=== PATIENT | male | born 1980 | race American Indian/Alaskan Native ===

== ENCOUNTER 2022-03-13 06:37 | Inpatient (IN) | payer MEDICAID ==
--- NOTE | 2022-03-13 07:42 | Emergency Department Report ---
ED Shortness of Breath HPI - General Chief Complaint: Dyspnea/Respdistress Stated Complaint: FLU LIKE SYMPTOMS Time Seen by Provider: 03/13/22 07:40 Source: patient, EMS Mode of arrival: Stretcher Limitations: No Limitations - History of Present Illness Initial Comments: Patient is a 42-year-old male with history of chronic kidney disease on dialysis Monday presenting to ED with complaint of shortness of breath, chills and coughing up mucus this morning. States he missed his last dialysis session on Monday. He denies any fever. - Related Data Allergies Allergy/AdvReac Type Severity Reaction Status Date / Time morphine Allergy Itching Verified 03/13/22 07:01 ED Review of Systems ROS: Stated complaint: FLU LIKE SYMPTOMS Other details as noted in HPI Constitutional: chills. denies: fever Respiratory: cough, shortness of breath Cardiovascular: denies: chest pain, palpitations Gastrointestinal: denies: abdominal pain, nausea, diarrhea Musculoskeletal: denies: back pain, joint swelling, arthralgia Skin: denies: rash, lesions Neurological: denies: headache, weakness, paresthesias Psychiatric: denies: anxiety, depression ED Past Medical Hx - Past Medical History Previous Medical History?: Yes Hx Hypertension: Yes Hx Renal Disease: Yes (On dialysis) - Surgical History Past Surgical History?: Yes Additional Surgical History: Left AV fistula - Social History Smoking Status: Current Every Day Smoker Substance Use Type: None ED Physical Exam - General Limitations: No Limitations General appearance: alert, in no apparent distress - Head Head exam: Present: atraumatic, normocephalic - Respiratory Respiratory exam: Present: normal lung sounds bilaterally. Absent: respiratory distress - Cardiovascular Cardiovascular Exam: Present: regular rate, normal rhythm, normal heart sounds - GI/Abdominal GI/Abdominal exam: Present: soft. Absent: distended, tenderness - Rectal Rectal exam: Present: deferred - Neurological Exam Neurological exam: Present: alert, oriented X3 - Psychiatric Psychiatric exam: Present: normal affect, normal mood - Skin Skin exam: Present: warm, dry, intact, normal color ED Course Vital Signs 03/13/22 03/13/22 03/13/22 06:37 07:30 07:32 Temperature 98.4 F Pulse Rate 76 Respiratory 18 Rate Blood Pressure 172/108 191/122 O2 Sat by Pulse 100 95 95 Oximetry 0903/13/22 03/13/22 08:00 08:30 09:43 Temperature Pulse Rate Respiratory Rate Blood Pressure 166/110 166/110 170/119 O2 Sat by Pulse 96 95 Oximetry 03/13/22 03/13/22 10:00 10:16 Temperature 97.4 F L Pulse Rate Respiratory Rate Blood Pressure 170/119 O2 Sat by Pulse 91 Oximetry ED Medical Decision Making - Lab Data Result diagrams: 03/13/22 09:35 03/13/22 09:35 - Medical Decision Making Chest x-ray reveals mild pulmonary edema. Potassium 6.6. Patient given oral Kayexalate and IV calcium gluconate. Nephrology consulted for dialysis. Will admit to hospitalist. Critical care attestation.: If time is entered above; I have spent that time in minutes in the direct care of this critically ill patient, excluding procedure time. ED Disposition Clinical Impression: Volume overload, Hyperkalemia, Pulmonary edema, ESRD needing dialysis Disposition: ADMITTED INPATIENT Is pt being admited?: Yes Condition: Stable Instructions: Pulmonary Edema (ED)
--- NOTE | 2022-03-13 08:07 | XRay Report ---
CHEST 1 VIEW 03/13/2022 7:00 AM INDICATION / CLINICAL INFORMATION: Dyspnea. COMPARISON: None available. FINDINGS: SUPPORT DEVICES: None. HEART / MEDIASTINUM: The cardiac silhouette is at the upper limits normal for size. There is mild megan tral pulmonary vascular prominence. LUNGS / PLEURA: Mild diffuse interstitial prominence. No pneumothorax. ADDITIONAL FINDINGS: No significant additional findings. IMPRESSION: 1. Mild pulmonary edema. Signer Name: Poncho Dos Santos MD Signed: 03/13/2022 8:03 AM Workstation Name: [email or web address]
[2022-03-13 10:39] LABS: Basophils # (Auto) 0.1 K/mm3 (0.0-0.1); Basophils % (Auto) 1.2 % (0.0-1.8); Eosinophils # (Auto) 0.2 K/mm3 (0.0-0.4); Eosinophils % (Auto) 2.1 % (0.0-4.3); Hematocrit 31.2 % (35.5-45.6); Hemoglobin 10.3 gm/dl (11.8-15.2); Lymphocytes # (Auto) 1.8 K/mm3 (1.2-5.4); Lymphocytes % (Auto) 22.4 % (13.4-35.0); Mean Corpuscular HGB Conc 33 % (32-34); Mean Corpuscular Volume 95 fl (84-94); Monocytes # (Auto) 0.5 K/mm3 (0.0-0.8); Monocytes % (Auto) 6.1 % (0.0-7.3); Platelet Count 325 K/mm3 (140-440); Red Cell Distribution Width 15.6 % (13.2-15.2)
[2022-03-13 10:50] LABS: Albumin 4.3 g/dL (3.9-5); Calcium 6.4 mg/dL (8.4-10.2)
[2022-03-13] MEDS ORDERED: CALCIUM GLUCONATE 1,000 MG in SODIUM CHLORIDE 0.9% 100 ML IV ONE (11:32)
[2022-03-13] MEDS ORDERED: SODIUM POLYSTYRENE 15 GM/60 ML ORAL LIQD PO ONE (11:33)
[2022-03-13] MEDS ORDERED: SODIUM CHLORIDE 0.9% 100 ML IV PRN ×2 (13:24→21:32)
--- NOTE | 2022-03-13 13:24 | Consultation ---
History of Present Illness - Reason for Consult Consult date: 03/13/22 end stage renal disease Requesting physician: YAZMIN PIMENTEL - History of Present Illness 42-year-old male who is not known to me with history of end-stage renal disease for 7 years on hemodialysis on a Monday, Monday and Monday schedule at [facility]. Patient missed his dialysis on Monday has lost track of time. He woke up at 7 PM and his chair time at 3 PM. He was doing well until last night when he developed shortness of breath which has kept worsening. He admits nonproductive cough. He also had chest pain on deep breathing. No fever or chills. Shortness of breath Worsened and so he came to the hospital for further management. In the emergency room, blood pressure was as high as 191/122 mmHg. Potassium is high at 6.6 mmol/L and bicarbonate low at 18 mmol/L. I am consulted to assist with managing renal failure, provide dialysis and manage fluid and electrolyte abnormalities. Past History Past Medical History: anemia, ESRD, hypertension Past Surgical History: Other (AV fistula placement) Social history: smoking (Half a pack per day of tobacco), other (Smokes [employer]. Lives with his .). denies: alcohol abuse, prescription drug abuse Family history: CAD (Mother of heart disease), cancer (Father of cancer) Medications and Allergies Allergies Allergy/AdvReac Type Severity Reaction Status Date / Time morphine Allergy Itching Verified 03/13/22 07:01 Review of Systems All systems: negative (As noted in history of present illness) Exam - Vital Signs Vital signs: Vital Signs Temp Pulse Resp BP Pulse Ox 98.4 F 76 18 172/108 100 03/13/22 06:37 03/13/22 06:37 03/13/22 06:37 03/13/22 06:37 03/13/22 06:37 - Physical Exam Narrative exam: Middle-aged -Bh[place] male lying in bed in no acute distress HEENT: NCAT, pink oral mucous membrane Neck: Supple, no venous distention CVS: S1S2 RRR with no murmur, rub or gallop Chest: Bilateral rhonchi Abdomen: Protuberant, soft, nontender, no organomegaly, bowel sounds are present Extremities: No edema, left upper extremity forearm AV fistula Genitourinary deferred Skin warm and dry Neuro: Awake, alert no focal deficits Results - Lab Results 03/13/22 09:35 03/13/22 09:35 Most recent lab results Calcium 6.4 mg/dL (8.4-10.2) L 03/13/22 09:35 Assessment and Plan - Patient Problems (1) Hyperkalemia Current Visit: Yes Status: Acute Plan to address problem: Secondary to missed dialysis. Patient treated medically. Will dialyze emergently. Put in orders and I spoke with charge nurse in the to contacts dialysis nurse for stat dialysis (2) Pulmonary edema Current Visit: Yes Status: Acute Plan to address problem: Fluid overload secondary to missed dialysis with pulmonary edema. Continue oxygen and we will dialyze today for fluid removal and solute clearance. (3) Accelerated hypertension Current Visit: Yes Status: Acute Plan to address problem: Probably volume related. Give oral antihypertensive medications and dialyze (4) Metabolic acidosis Current Visit: Yes Status: Acute Plan to address problem: Uremic acidosis secondary to missed dialysis. Correct with hemodialysis (5) Anemia in end-stage renal disease Current Visit: Yes Status: Acute Plan to address problem: Given erythropoietin on dialysis once blood pressures controlled (6) ESRD needing dialysis Current Visit: Yes Status: Acute Plan to address problem: Hemodialysis today and again tomorrow. Reinforced importance of adhering to dialysis regimen. Encouraged him to use an alarm on his phone to remind him of his dialysis time.
[2022-03-13] MEDS ORDERED: oxyCODONE /ACETAMINOPHEN 5-325MG TAB PO PRN (16:12)
[2022-03-13] MEDS ORDERED: MORPHINE 2 MG/1 ML INJ IV PRN (16:12)
[2022-03-13] MEDS ORDERED: ONDANSETRON 4 MG/2 ML INJ IV PRN (16:12)
[2022-03-13] MEDS ORDERED: ACETAMINOPHEN 325 MG TAB PO PRN (16:12)
--- NOTE | 2022-03-13 16:16 | History and Physical Report ---
History of Present Illness Date of examination: 03/13/22 Date of admission: 03/13/2022 Chief complaint: Increasing shortness of breath for 1 days History of present illness: Patient is a 42-year-old male with history of chronic kidney disease on dialysis Monday presenting to ED with complaint of shortness of breath, chills and coughing up mucus this morning. States he missed his last dialysis session on Monday. He denies any fever. - Past Medical History --Previous Medical History?: Yes --Hypertension: Yes --Renal Disease: Yes (On dialysis) - Surgical History --Past Surgical History?: Yes --Additional Surgical History: Left AV fistula -family history - -Htn - Social History --Smoking Status: Current Every Day Smoker --Substance Use Type: None Review of Systems ROS: Stated complaint: FLU LIKE SYMPTOMS Other details as noted in HPI Constitutional: chills. denies: fever Respiratory: cough, shortness of breath Cardiovascular: denies: chest pain, palpitations Gastrointestinal: denies: abdominal pain, nausea, diarrhea Musculoskeletal: denies: back pain, joint swelling, arthralgia Skin: denies: rash, lesions Neurological: denies: headache, weakness, paresthesias Psychiatric: denies: anxiety, depression Medications and Allergies Allergies Allergy/AdvReac Type Severity Reaction Status Date / Time morphine Allergy Itching Verified 03/13/22 07:01 Active Meds: Active Medications Sodium Chloride (Nacl 0.9%) 100 mls @ 999 mls/hr IV MARIANA PRN PRN Reason: Hypotension Exam - Constitutional Vitals: Temp Pulse Resp BP Pulse Ox 97.4 F L 76 18 182/115 96 03/13/22 10:16 03/13/22 06:37 03/13/22 06:37 03/13/22 15:15 03/13/22 13:30 General appearance: Present: no acute distress, well-nourished - EENT Eyes: Present: PERRL ENT: hearing intact, clear oral mucosa - Neck Neck: Present: supple, normal ROM - Respiratory Respiratory effort: normal Respiratory: bilateral: CTA - Cardiovascular Heart rate: 78 Rhythm: regular Heart Sounds: Present: S1 & S2. Absent: rub, click - Extremities Extremities: no ischemia, pulses intact, pulses symmetrical, No edema Peripheral Pulses: within normal limits - Abdominal General gastrointestinal: Present: soft, non-tender, non-distended, normal bowel sounds Male genitourinary: Present: normal - Integumentary Integumentary: Present: clear, warm, dry - Musculoskeletal Musculoskeletal: gait normal, strength equal bilaterally - Psychiatric Psychiatric: appropriate mood/affect, intact judgment & insight - Neurologic Neurologic: CNII-XII intact, moves all extremities Results - Labs CBC & Chem 7: 03/14/22 05:50 03/13/22 09:35 Labs: Laboratory Last Values WBC 8.0 K/mm3 (4.5-11.0) 03/13/22 09:35 RBC 3.30 M/mm3 (3.65-5.03) L 03/13/22 09:35 Hgb 10.3 gm/dl (11.8-15.2) L 03/13/22 09:35 Hct 31.2 % (35.5-45.6) L 03/13/22 09:35 MCV 95 fl (84-94) H 03/13/22 09:35 MCH 31 pg (28-32) 03/13/22 09:35 MCHC 33 % (32-34) 03/13/22 09:35 RDW 15.6 % (13.2-15.2) H 03/13/22 09:35 Plt Count 325 K/mm3 (140-440) 03/13/22 09:35 Lymph % (Auto) 22.4 % (13.4-35.0) 03/13/22 09:35 [place] % (Auto) 6.1 % (0.0-7.3) 03/13/22 09:35 Eos % (Auto) 2.1 % (0.0-4.3) 03/13/22 09:35 Baso % (Auto) 1.2 % (0.0-1.8) 03/13/22 09:35 Lymph # (Auto) 1.8 K/mm3 (1.2-5.4) 03/13/22 09:35 [place] # (Auto) 0.5 K/mm3 (0.0-0.8) 03/13/22 09:35 Eos # (Auto) 0.2 K/mm3 (0.0-0.4) 03/13/22 09:35 Baso # (Auto) 0.1 K/mm3 (0.0-0.1) 03/13/22 09:35 Seg Neutrophils % 68.2 % (40.0-70.0) 03/13/22 09:35 Seg Neutrophils # 5.5 K/mm3 (1.8-7.7) 03/13/22 09:35 Sodium 141 mmol/L (137-145) 03/13/22 09:35 Potassium 6.6 mmol/L (3.6-5.0) H* 03/13/22 09:35 Chloride 101.2 mmol/L (98-107) 03/13/22 09:35 Carbon Dioxide 18 mmol/L (22-30) L 03/13/22 09:35 Anion Gap 28 mmol/L 03/13/22 09:35 BUN 66 mg/dL (9-20) H 03/13/22 09:35 Creatinine 19.8 mg/dL (0.8-1.3) H 03/13/22 09:35 Estimated GFR 3 ml/min 03/13/22 09:35 BUN/Creatinine Ratio 3 % 03/13/22 09:35 Glucose 86 mg/dL (75-100) 03/13/22 09:35 Calcium 6.4 mg/dL (8.4-10.2) L 03/13/22 09:35 Total Bilirubin 0.30 mg/dL (0.1-1.2) 03/13/22 09:35 AST 19 units/L (5-40) 03/13/22 09:35 ALT 19 units/L (7-56) 03/13/22 09:35 Alkaline Phosphatase 88 units/L (35-129) 03/13/22 09:35 Total Protein 6.5 g/dL (6.3-8.2) 03/13/22 09:35 Albumin 4.3 g/dL (3.9-5) 03/13/22 09:35 Albumin/Globulin Ratio 2.0 % 03/13/22 09:35 - Imaging and Cardiology Imaging and Cardiology: Chest x-ray Mild pulmonary edema Assessment and Plan Advance Directives: Yes (Full code) VTE prophylaxis?: Chemical Plan of care discussed with patient/family: Yes - Patient Problems (1) Volume overload Current Visit: Yes Status: Acute Plan to address problem: Volume overload secondary to missed hemodialysis Emergent hemodialysis Nephrology consulted (2) ESRD needing dialysis Current Visit: Yes Status: Chronic Plan to address problem: Emergent hemodialysis Nephrology consulted (3) Hyperkalemia Current Visit: Yes Status: Acute Plan to address problem: Hyperkalemia treated in the emergency room with Kayexalate, calcium gluconate and sodium bicarbonate and IV insulin. (4) Hypertension Current Visit: Yes Status: Chronic Qualifiers: Hypertension type: primary hypertension Qualified Code(s): I10 - Essential (primary) hypertension Plan to address problem: Continue antihypertensives Adjust medications (5) Hypertension Current Visit: Yes Status: Chronic Qualifiers: Hypertension type: primary hypertension Qualified Code(s): I10 - Essential (primary) hypertension Plan to address problem: Patient initiated on valsartan 160 daily 12. Adjust medications as necessary. (6) DVT prophylaxis Current Visit: Yes Status: Acute Plan to address problem: On heparin and GI prophylaxis (7) Advance care planning Current Visit: Yes Status: Acute Plan to address problem: Disease education conducted, care plan discussed, diagnosis and prognosis discussed. Patient is full code. Patient acknowledged understanding of the care plan. +30 minutes.
[2022-03-13] MEDS ORDERED: CALCIUM GLUCONATE 2,000 MG in SODIUM CHLORIDE 0.9% 100 ML IV ONE (16:22)
[2022-03-13] MEDS: VALSARTAN 160MG TAB PO SCH (16:43)
[2022-03-13 18:59] LABS: Hepatitis B Surface Antigen Non-Reactive (Negative); Hepatitis C Virus Antibody Non-Reactive (NonReactive)
[2022-03-13] MEDS ORDERED: cloNIDine 0.1 MG TAB PO PRN (21:32)
[2022-03-13] MEDS: carvediloL 12.5 MG TAB PO SCH ×2 (22:24→22:26)
[2022-03-14] MEDS: HEPARIN 5,000 UNIT/1 ML VIAL SUB-Q SCH ×2 (00:08→09:16)
[2022-03-14] MEDS: FAMOTIDINE 10 MG TAB PO SCH ×2 (00:08→09:16)
[2022-03-14] MEDS: VALSARTAN 160MG TAB PO SCH (06:18)
[2022-03-14 06:43] LABS: Basophils # (Auto) 0.1 K/mm3 (0.0-0.1); Basophils % (Auto) 1.7 % (0.0-1.8); Eosinophils # (Auto) 0.4 K/mm3 (0.0-0.4); Eosinophils % (Auto) 5.8 % (0.0-4.3); Hematocrit 29.7 % (35.5-45.6); Hemoglobin 10.2 gm/dl (11.8-15.2); Lymphocytes # (Auto) 1.7 K/mm3 (1.2-5.4); Lymphocytes % (Auto) 28.8 % (13.4-35.0); Mean Corpuscular HGB Conc 34 % (32-34); Mean Corpuscular Volume 92 fl (84-94); Monocytes # (Auto) 0.5 K/mm3 (0.0-0.8); Monocytes % (Auto) 8.5 % (0.0-7.3); Platelet Count 290 K/mm3 (140-440); Red Blood Count 3.22 M/mm3 (3.65-5.03); Red Cell Distribution Width 15.2 % (13.2-15.2)
[2022-03-14 08:02] LABS: Calcium 7.1 mg/dL (8.4-10.2)
[2022-03-14] MEDS: carvediloL 12.5 MG TAB PO SCH (09:16)
[2022-03-14] MEDS ORDERED: hydrALAZINE 20 MG/1 ML INJ IV PRN (10:00)
[2022-03-14] MEDS: hydrALAZINE 25 MG TAB PO SCH ×2 (10:45→15:14)
--- NOTE | 2022-03-14 12:58 | Discharge Summary ---
Providers - Providers Date of Admission: 03/13/22 18:17 Attending physician: CELSO EDGAR MD 03/13/22 12:16 Consult to Physician [CONS] Stat Comment: Consulting Provider: NARDA ZUNIGA Physician Instructions: Reason For Exam: Needs dialysis Primary care physician: HENOK AMAYA Hospitalization Reason for admission: SHORTNESS OF BREATH Condition: Stable Hospital course: Patient is a 42-year-old male with history of chronic kidney disease on dialysis Monday presenting to ED with complaint of shortness of breath, chills and coughing up mucus this morning. States he missed his last dialysis session on Monday. He denies any fever. - Past Medical History --Previous Medical History?: Yes --Hypertension: Yes --Renal Disease: Yes (On dialysis) - Surgical History --Past Surgical History?: Yes --Additional Surgical History: Left AV fistula -family history - -Htn - Social History --Smoking Status: Current Every Day Smoker --Substance Use Type: None Chest x-ray showed mild pulmonary edema 03/14: Patient seen and examined today clinically stable respiratory status is improved. He has been dialyzed today for second consecutive dialysis. We will plan to discharge after dialysis patient verbalized understanding on importance of following up with his promotions representative and keeping up with his dialysis appointments. Made some adjustments to his blood pressure medications to better controlled at this time. Not at goal yet. Preventive care counseling was provided to the patient (1) Volume overload Current Visit: Yes Status: Acute Plan to address problem: Volume overload secondary to missed hemodialysis Emergent hemodialysis Nephrology consulted (2) ESRD needing dialysis Current Visit: Yes Status: Chronic Plan to address problem: Emergent hemodialysis Nephrology consulted (3) Hyperkalemia Current Visit: Yes Status: Acute Plan to address problem: Hyperkalemia treated in the emergency room with Kayexalate, calcium gluconate and sodium bicarbonate and IV insulin. (4) Hypertension Current Visit: Yes Status: Chronic Qualifiers: Hypertension type: primary hypertension Qualified Code(s): I10 - Essential (primary) hypertension Plan to address problem: Continue antihypertensives Adjust medications (5) Hypertension Current Visit: Yes Status: Chronic Qualifiers: Hypertension type: primary hypertension Qualified Code(s): I10 - Essential (primary) hypertension Plan to address problem: Patient initiated on valsartan 160 daily 12. Adjust medications as necessary. (6) DVT prophylaxis Current Visit: Yes Status: Acute Plan to address problem: On heparin and GI prophylaxis (7) Advance care planning Current Visit: Yes Status: Acute Plan to address problem: Disease education conducted, care plan discussed, diagnosis and prognosis discussed. Patient is full code. Patient acknowledged understanding of the care plan. +30 minutes. Disposition: 30 STILL A PATIENT Final Discharge Diagnosis (Prints w/discharge instructions): [1] volume overload secondary to end-stage renal disease and noncompliance with dialysis. (2) ESRD needing dialysis. [3) acute respiratory failure with mild hypoxia now. (4) Hyperkalemia. (5) Hypertension with urgency Time spent for discharge: 35 MINS Core Measure Documentation - Palliative Care Palliative Care/ Comfort Measures: Not Applicable - Core Measures Any of the following diagnoses?: none Exam - Physical Exam Narrative exam: VITAL SIGNS: Reviewed. GENERAL: The patient appears normally developed, Vital signs as documented. HEAD: No signs of head trauma. EYES: Pupils are equal. Extraocular motions intact. EARS: Hearing grossly intact. MOUTH: Oropharynx is normal. NECK: No adenopathy, no JVD. CHEST: Chest with clear breath sounds bilaterally. No wheezes, rales, or rhonchi. CARDIAC: Regular rate and rhythm. S1 and S2, without murmurs, gallops, or rubs. VASCULAR: No Edema. Peripheral pulses normal and equal in all extremities. ABDOMEN: Soft, non tender and non distended. No rebound or guarding, and no masses palpated. Bowel Sounds normal. MUSCULOSKELETAL: Good range of motion of all major joints. Extremities without clubbing, cyanosis or edema. NEUROLOGIC EXAM: Alert and oriented x 3 No focal sensory or strength deficits. Speech normal. Follows commands. PSYCHIATRIC: Mood normal. SKIN: detail exam as documented in skin assessment - Constitutional Vitals: Temp Pulse Resp BP Pulse Ox 98.2 F 59 L 20 166/104 100 03/14/22 10:55 03/14/22 12:15 03/14/22 10:55 03/14/22 12:15 03/14/22 10:55 Plan Activity: advance as tolerated, fall precautions Diet: renal Special Instructions: restrict fluid intake to (1000CC/DAY), record daily weights, record daily BP diary Follow up with: HENOK AMAYA MD [Primary Care Provider] - 3-5 Days NARDA ZUNIGA MD [Staff Physician] - 7 Days Prescriptions: carvediloL [Coreg] 12.5 mg PO BID #60 tablet Valsartan [Diovan] 160 mg PO Q12H #60 tablet Hydralazine HCl 50 mg PO TID #90 tab
--- NOTE | 2022-03-14 14:07 | Progress Note ---
Assessment and Plan - Patient Problems (1) Hyperkalemia Current Visit: Yes Status: Chronic Plan to address problem: corrected for dialysis. Counseled on importance of low potassium diet and also with compliance with treatments. (2) Volume overload Current Visit: Yes Status: Chronic Plan to address problem: likely as a consequence of missed dialysis treatment. Counseled the importance of compliance at this time. Doing better this morning. (3) ESRD needing dialysis Current Visit: Yes Status: Chronic Plan to address problem: patient is going to be getting dialysis this morning. From nephrology standpoint patient is stable for discharge after dialysis treatment. (4) Anemia in end-stage renal disease Current Visit: Yes Status: Chronic Plan to address problem: continue CARRIE therapy with hemodialysis. (5) Hypertension Current Visit: Yes Status: Chronic Qualifiers: Hypertension type: primary hypertension Qualified Code(s): I10 - Essential (primary) hypertension Plan to address problem: monitor blood pressures under current regimen. Subjective Date of service: 03/14/22 Interval history: no acute issues this morning. Plan for dialysis today. Should be able to be discharged after dialysis treatment Objective - Vital Signs Vital signs: Vital Signs - 12hr 03/14/22 03/14/22 03/14/22 05:21 07:40 09:00 Temperature 97.8 F Pulse Rate 69 74 Pulse Rate [ 74 From Monitor] Respiratory 18 18 Rate Blood Pressure 169/115 O2 Sat by Pulse 97 98 Oximetry O2 Sat by Pulse Oximetry [ Posterior Bilateral] 03/14/22 03/14/22 03/14/22 10:55 11:00 11:15 Temperature 98.2 F Pulse Rate 60 59 L 59 L Pulse Rate [ From Monitor] Respiratory 20 Rate Blood Pressure 177/111 171/113 178/110 O2 Sat by Pulse Oximetry O2 Sat by Pulse 100 Oximetry [ Posterior Bilateral] 03/14/22 03/14/22 03/14/22 11:30 11:45 12:00 Temperature Pulse Rate 89 51 L 53 L Pulse Rate [ From Monitor] Respiratory Rate Blood Pressure 170/100 156/97 158/96 O2 Sat by Pulse Oximetry O2 Sat by Pulse Oximetry [ Posterior Bilateral] 03/14/22 12:15 Temperature Pulse Rate 59 L Pulse Rate [ From Monitor] Respiratory Rate Blood Pressure 166/104 O2 Sat by Pulse Oximetry O2 Sat by Pulse Oximetry [ Posterior Bilateral] - General Appearance General appearance: well-developed EENT: ATNC Neck: no JVD Respiratory: Present: Clear to Ascultation Cardiology: regular Gastrointestinal: normal Integumentary: no rash, warm and dry Neurologic: no focal deficit Musculoskeletal: deferred Psychiatric: cooperative - Lab 03/14/22 05:50 03/14/22 05:50 Most recent lab results Calcium 7.1 mg/dL (8.4-10.2) L 03/14/22 05:50 - Allied health notes Allied health notes reviewed: nursing Medications & Allergies - Medications Allergies/Adverse Reactions: Allergies morphine Allergy (Verified 03/13/22 07:01) Itching Home Medications: Home Medications Medication Instructions Recorded Confirmed Last Taken Type Hydralazine HCl 50 mg PO TID #90 tab 03/14/22 Unknown Rx Valsartan [Diovan] 160 mg PO Q12H #60 tablet 03/14/22 Unknown Rx carvediloL [Coreg] 12.5 mg PO BID #60 tablet 03/14/22 Unknown Rx Active Medications: Generic Name Dose Route Start Last Admin Trade Name Mikaelq PRN Reason Stop Dose Admin Acetaminophen 650 mg 03/13/22 16:12 Acetaminophen 325 Mg Tab PO Q4H PRN Pain MILD(1-3)/Fever >100.5/MORRISON Carvedilol 12.5 mg 03/13/22 22:00 03/14/22 09:16 Carvedilol 12.5 Mg Tab PO 12.5 mg BID DEXTER Administration Clonidine HCl 0.1 mg 03/13/22 21:32 03/13/22 22:26 Clonidine 0.1 Mg Tab PO 0.1 mg MARIANA PRN Administration Hypertension Famotidine 10 mg 03/13/22 22:00 03/14/22 09:16 Famotidine 10 Mg Tab PO 10 mg BID DEXTER Administration Heparin Sodium (Porcine) 5,000 unit 03/13/22 22:00 03/14/22 09:16 Heparin 5,000 Unit/1 Ml Vial SUB-Q 5,000 unit Q12HR DEXTER Administration Hydralazine HCl 10 mg 03/14/22 10:00 Hydralazine 20 Mg/1 Ml Inj IV Q4HR PRN Hypertension Hydralazine HCl 50 mg 03/14/22 10:00 03/14/22 10:45 Hydralazine 25 Mg Tab PO Not Given Q8HR DEXTER Sodium Chloride 100 mls @ 999 mls/hr 03/13/22 21:32 Nacl 0.9% IV MARIANA PRN Hypotension Morphine Sulfate 2 mg 03/13/22 16:12 Morphine 2 Mg/1 Ml Inj IV Q4H PRN Pain, Moderate (4-6) Ondansetron HCl 4 mg 03/13/22 16:12 Ondansetron 4 Mg/2 Ml Inj IV Q8H PRN Nausea And Vomiting Oxycodone/Acetaminophen 1 tab 03/13/22 16:12 Oxycodone /Acetaminophen 5-325mg Tab PO Q6H PRN Pain, Moderate (4-6) Sodium Chloride 10 ml 03/13/22 22:00 03/14/22 09:17 Sodium Chloride 0.9% 10 Ml Flush Syringe IV 10 ml BID DEXTER Administration Sodium Chloride 10 ml 03/13/22 16:12 Sodium Chloride 0.9% 10 Ml Flush Syringe IV PRN PRN LINE FLUSH Valsartan 160 mg 03/13/22 17:00 03/14/22 06:18 Valsartan 160mg Tab PO 160 mg Q12H DEXTER Administration
[2022-03-14 16:20] VITALS: BP 176/119
--- NOTE | 2022-03-15 09:53 | Electrocardiograph Report ---
[facility] Test Date: 2022-03-13 Test Time: 10:54:03 Pat Name: DENNY HAY Department: Room: A477 Gender: M Try On Baster: [id number] : 1980 Requested By: YAZMIN PIMENTEL Order Number: [id number] Reading MD: Matheus Montana Measurements Intervals [place] Rate: 71 P: 30 AK: 212 QRS: 61 QRSD: 85 T: 67 QT: 494 QTc: 538 Interpretive Statements Sinus rhythm Prolonged AK interval Prolonged QT interval No previous ECG available for comparison Electronically Signed On 03-15-2022 9:53:47 EDT by Matheus Montana
== END 2022-03-14 15:35 | disposition home or self-care (01) | DRG 640 ==
LOC: ED 06:37 → 4A 18:17
PROVIDERS: ADMIT Internal Medicine; ATTEND Internal Medicine
PROC: 5A1D70Z Performance of Urinary Filtration, Intermittent, Less than 6 Hours Per Day (ICD-10-PCS; principal; 2022-03-13)
PROC: 5A1D70Z Performance of Urinary Filtration, Intermittent, Less than 6 Hours Per Day (ICD-10-PCS; 2022-03-14)
DX: E87.5 Hyperkalemia (principal); N18.6 End stage renal disease; J96.01 Acute respiratory failure with hypoxia; J81.0 Acute pulmonary edema; I12.0 Hypertensive chronic kidney disease with stage 5 chronic kidney disease or end stage renal disease; Z99.2 Dependence on renal dialysis; F17.200 Nicotine dependence, unspecified, uncomplicated; E87.70 Fluid overload, unspecified; E87.2 Acidosis; D63.1 Anemia in chronic kidney disease; Z91.15 Patient's noncompliance with renal dialysis; I16.0 Hypertensive urgency; Z82.49 Family history of ischemic heart disease and other diseases of the circulatory system
CPT/HCPCS: 36415; 71045; 80053; 80074; 85025; 93005; 96374; 99285; G0378; J0610; J1644